=== PATIENT | female | born 1980 | race Caucasian/White ===

== ENCOUNTER 2020-12-06 08:46 | Observation (INO) | payer BC ==
[~2020-12-06] VITALS: Ht 162.6 cm; Wt 112.5 kg
[~2020-12-06 08:46] MED LIST: CIPRO500 MG PO; FLAGYL500 MG PO
[2020-12-06 09:37] LABS: RED BLOOD COUNT 3.56 M/UL (4.00-5.10); WHITE BLOOD COUNT 8.1 K/UL (4.5-11.0)
[2020-12-06 10:09] LABS: BUN/CREATININE RATIO 12 (0-10)
[2020-12-06 10:34] LABS: HEMOGLOBIN 6.5 gm/dl (12.3-15.3)
[2020-12-06] MEDS ORDERED: PENTASA500 MG PO (12:23)
[2020-12-06] MEDS ORDERED: HYDROCHLOROTHIA25 MG PO (12:23)
[2020-12-06] MEDS ORDERED: METHOCARBAMOL500 MG PO (12:24)
[2020-12-07 05:31] LABS: WHITE BLOOD COUNT 6.9 K/UL (4.5-11.0)
[2020-12-07 05:34] LABS: HEMOGLOBIN 8.5 gm/dl (12.3-15.3); RED BLOOD COUNT 4.12 M/UL (4.00-5.10)
[2020-12-07 05:48] LABS: BUN/CREATININE RATIO 12 (0-10)
[2020-12-07] MEDS ORDERED: FERROUS GLUCON324 M1 PO (11:08)
[2020-12-07] MEDS ORDERED: PEPCID40 MG PO (11:08)
== END 2020-12-07 12:13 | disposition home or self-care (01) ==
LOC: ER1 08:46 → CDU 11:24 → MED SURG 4 11:50
PROVIDERS: Physician Assistant; Physician Assistant Medical; ADMIT Internal Medicine Infectious Disease
DX: D50.9 Iron deficiency anemia, unspecified (principal); K51.90 Ulcerative colitis, unspecified, without complications; L40.9 Psoriasis, unspecified; Z20.822 Contact with and (suspected) exposure to COVID-19; Z88.2 Allergy status to sulfonamides; Z79.899 Other long term (current) drug therapy
CPT/HCPCS: 36415; 36430; 80048; 80053; 82272; 82607; 82728; 82746; 83540; 83550; 83735; 84443; 85025; 85027; 86850; 86900; 86901; 86920; 99285; G0378; P9016; U0002

== ENCOUNTER 2022-02-22 10:24 | Emergency (ER) | payer BC ==
[~2022-02-22 10:24] MED LIST changes: +FERROUS GLUCON324 M1 PO; +HYDROCHLOROTHIA25 MG PO; +METHOCARBAMOL500 MG PO; +PENTASA500 MG PO; +PEPCID40 MG PO
[2022-02-22 10:51] LABS: HEMOGLOBIN 12.4 gm/dl (12.3-15.3); RED BLOOD COUNT 4.79 M/UL (4.00-5.10); WHITE BLOOD COUNT 10.8 K/UL (4.5-11.0)
[2022-02-22 11:16] LABS: BUN/CREATININE RATIO 7 (0-10)
[2022-02-22] MEDS ORDERED: AMOX TR-K CLV1 EAC4 PO (12:45)
[2022-02-22] MEDS ORDERED: ENDOCET 5-3251 EACH PO (12:52)
== END 2022-02-22 13:29 | disposition home or self-care (01) ==
LOC: ER1 10:24
DX: K80.70 Calculus of gallbladder and bile duct without cholecystitis without obstruction (principal)
CPT/HCPCS: 76705; 80053; 81001; 83690; 84703; 85025; 96374; 96375; 99284; J1885; J2405

== ENCOUNTER → 2022-03-11 | Day surgery (SDC) | payer BC ==
[~2022-03-11] MED LIST changes: +AMOX TR-K CLV1 EAC4 PO; +ENDOCET 5-3251 EACH PO; +FAMOTIDINE40 MG PO; +FLUOXETINE HCL10 M1 PO; +HYDROCODON-ACE1 EAC4 PO; +PENTASA 250 MG250 MG PO; +TYLENOL PM EX-1 EACH PO; +VITAMIN D21250 MCG PO
== END | disposition home or self-care (01) ==
LOC: OR 05:18
DX: K80.10 Calculus of gallbladder with chronic cholecystitis without obstruction (principal); F17.290 Nicotine dependence, other tobacco product, uncomplicated; Z88.2 Allergy status to sulfonamides; Z79.899 Other long term (current) drug therapy
CPT/HCPCS: 84703; C1729; J0690; J1100; J1170; J2001; J2250; J2405; J2704; J2710; J3010

== ENCOUNTER → 2022-05-17 | Outpatient (CLI) | payer BC ==
[~2022-05-17] VITALS: Ht 162.6 cm; Wt 106.6 kg
== END ==
LOC: OPSV 11:41
DX: D50.9 Iron deficiency anemia, unspecified (principal); K90.9 Intestinal malabsorption, unspecified
CPT/HCPCS: 96365; J1756; J7030